=== PATIENT | male | born 1960 | race Hispanic/Latino ===

== ENCOUNTER 2017-06-13 19:25 | Emergency (ER) | payer OTHER ==
[2017-06-13 20:50] VITALS: BP 93/52
--- NOTE | 2017-06-13 22:15 | XRay Report ---
FINAL REPORT PROCEDURE: XR FOREARM LT TECHNIQUE: LEFT forearm radiographs, AP and lateral views. CPT 40073 HISTORY: left arm pain hx of ulnar/radius fracture COMPARISON: No prior studies are available for comparison. FINDINGS: Fracture (s) and/or Dislocation(s): An acute fracture line is not identified. Irregular deformities are noted involving distal radial and ulnar metaphysis.. Joint space(s): Normal . Soft tissues: Normal . Bone mineralization: Normal . Foreign bodies: None . IMPRESSION: No acute fracture. Old healed fracture deformities of distal radius and ulna
[2017-06-14] MEDS ORDERED: MOTRIN ONE (01:21)
[2017-06-14] MEDS ORDERED: MOTRIN PO ONE (01:21)
--- NOTE | 2017-06-14 02:15 | Emergency Department Report ---
Upper Extremity - [facility] Chief Complaint: Extremity Injury, Upper Stated Complaint: LEFT ARM PAIN Time Seen by Provider: 06/14/17 00:42 Upper Extremity: Left Wrist (pain from injury 4 years ago.) Occurred When: Today Mechanism: Unsure Severity: severe (03/1018 and throbbing pain) Symptoms: Yes Pain with Movement (left wrist), Yes Deformity (Left wrist), Yes Limited Range of Movement (left wrist), Yes Swelling (LT wrist), No Numbness, No Weakness, No Bruising/Ecchymosis, No Laceration or Abrasion Other History: Skin he reports that he broke his left wrist on both sides 4 years ago and was told that he needed orthopedic surgery with pins and plates. He states that he did not have money so he is been dealing with chronic pain in that area for the past 4 years. He said today he woke up and the pain was 10 out of 10 and he is unable to move the toes of the pain. He said pain is throbbing and achy in and he doesn't know if he injured his wrist in a sleep but he usually has chronic pain but he usually has bad. He said he took Motrin and this did not help his pain. Denies any restriction in movement to fingers. Denies any redness. Reports swelling. Patient said he thinks he has arthritis. He has any chest pain or shortness of breath. Denies any radiation of pain similarly. Pain is better with rest and worse with movement. Patient said he does not have any money and he cannot afford any medication or follow- up with the doctor. ED Review of Systems ROS: Stated complaint: LEFT ARM PAIN Other details as noted in HPI Comment: All other systems reviewed and negative Constitutional: no symptoms reported Eyes: denies: eye discharge Respiratory: no symptoms reported Cardiovascular: denies: chest pain, palpitations, dyspnea on exertion, orthopnea , edema, syncope, paroxysmal nocturnal dyspnea Gastrointestinal: denies: abdominal pain, nausea, vomiting, diarrhea Musculoskeletal: joint swelling, arthralgia. denies: back pain, myalgia Skin: denies: rash Neurological: denies: headache, weakness, numbness, paresthesias, confusion, abnormal gait, vertigo ED Past Medical Hx - Past Medical History Previous Medical History?: Yes Hx Liver Disease: Yes (Hep C) - Surgical History Past Surgical History?: No - Family History Family history: no significant - Social History Smoking Status: Current Every Day Smoker Substance Use Type: Alcohol, Non Opiate Pain - Medications Home Medications: Home Medications Medication Instructions Recorded Confirmed Last Taken Type traMADol [Ultram] 50 mg PO Q6HR PRN 5 Days #20 tablet 06/14/17 Unknown Rx Upper Extremity Exam - Exam General: Vital signs noted. No distress. Alert and acting appropriately. This is a 57-year-old male well-nourished well-developed that appears tearful and explained this is from having pain to his left wrist. He is nontoxic in appearance Head and Torso: No HEENT Abnormality (normal examination), No Neck Tenderness ( normal examination without any C-spine tenderness), No Chest/Lungs Abnormality ( CTAB.), No Abdominal Tenderness (NTTP in all Quadrants. NL bs) Shoulder Exam: Yes Normal Range of Motion in Shoulder, No Shoulder Tenderness, No Clavicle Tenderness, No Shoulder Deformity, No AC Joint Tenderness Arm Exam: No Arm/Humerus Tenderness, No Arm Deformity Elbow: Yes Normal Range of Motion in Elbow, No Elbow Tenderness, No Elbow Deformity Forearm: No Forearm Tenderness, No Forearm Deformity, No Pain with Pronation Wrist: Yes Wrist Tenderness (radial and ulnar area), Yes Normal ROM in Wrist ( he has full range of motion but he reports it is very painful with flexion and extending his wrist.), Yes Wrist Deformity (positive bony deformity.), No Snuffbox Tenderness, No Pain with Axial Thumb Compression Hand: Yes Normal ROM in Digit(s), Yes Digit(s) Deformity (Pt with PIP, DIP and MIP joint swelling to digits of both hands.), No Hand Tenderness, No Hand Deformity, No Digit Tenderness, No Tendon Dysfunction (he is able to open and close both hands but reports it is more difficult close and left hand.) CMS Exam: Yes Normal Distal Pulses (pulses to bilateral radial ulnar 2+ and bounding), Yes Normal Capillary Refill (patient with good color, movement, sensation and temperature to all extremities), Yes Normal Distal Sensation (no signs of tendon injury.), No Broken Skin (no erythema or signs of infection.) ED Course Vital Signs 06/13/17 20:46 Temperature 98.3 F Pulse Rate 100 H Respiratory 20 Rate Blood Pressure 93/52 O2 Sat by Pulse 96 Oximetry - Reevaluation(s) Reevaluation #1: 06/14/17 03:13 She received Decadron 10 mg IM and Percocet 5/325 2 tablets in emergency room for acute exacerbation of chronic pain. - Orthopedic Splinting/Casting Injury #1 Side: left Upper Extremity Injury Location: wrist Upper Extremity Immobilizer: wrist splint ED Medical Decision Making - Radiology Data Radiology results: report reviewed X-ray of left forearm reveal patient with no acute fracture but he does have hold healed fracture deformities of the distal radial radius and ulnar. Radiology made an addendum to say patient with narrowing joint spaces involving the radial carpal and distal radial ulnar joints. Osteophyte formation is noted involving the radial ulnar joints. Changes are consistent with osteoarthritis - Medical Decision Making ED Course: Patient with chronic left wrist pain and chronic pain from osteoarthritis with acute exacerbation. He had left ulnar and radial fracture 4 years ago and was told that he needed surgery with pins and plates but he said he could not afford it and has been liver chronic pain and has been taking Motrin for several years. Patient said that he woke up this morning in an pain was worse 10 out of 10 throbbing in and cannot remember injuring an area recently. He states that he doesn't know if he hit his hand while he was in his sleep with his pain is very bad today. Patient became tearful when talking about pain. He was given Decadron 10 mg IM and Percocet 5/325 mg 2 tablets by mouth. Patient placed in Velcro left wrist splint . See procedure note for details. I discussed patient that he will need to follow-up with orthopedic doctor for management of chronic arthritis to his hands and also to left wrist from abnormal healing and to wrists from previous fracture without any repair. I Discussed patient that he has arthritis in his wrist and also to both hands noted by interphalangeal joints swelling and metacarpal bone joint swelling to both hands up with x-ray finding for osteophyte, osteoarthritis and bony deformity to left wrist that is healed abnormally from previous fracture that he did not seek medical care as instructed previously. Patient able to move all extremities but he said it's very painful to move his left wrist. He was understood the discharge instruction and treatment planned and discharged home with his family member in stable condition with prescription for Ultram and to follow-up at [facility] and he was also given multiple other resources for community clinic follow-up. I discussed with him that he should call Dr. Montaño was orthopedic doctor in the morning to schedule an appointment if possible. Critical care attestation.: If time is entered above; I have spent that time in minutes in the direct care of this critically ill patient, excluding procedure time. ED Disposition Clinical Impression: Arthralgia of multiple sites, H/O fracture of wrist Osteoarthritis, multiple sites Qualifiers: Osteoarthritis type: unspecified Qualified Code(s): M15.9 - Polyosteoarthritis , unspecified Chronic pain Qualifiers: Chronic pain type: due to trauma Qualified Code(s): G89.21 - Chronic pain due to trauma Disposition: TO HOME OR SELFCARE Is pt being admited?: No Does the pt Need Aspirin: No Condition: Stable Instructions: Osteoarthritis (ED), Chronic Pain (ED), Arthralgia (ED) Additional Instructions: Please follow up with primary care as recommended Increase fluid intake Take medication as prescribed . please do not drive or operate heavy machinery while taking tramadol this medication causes drowsiness Referred to discharge instruction on splint care. see multiple community referrals Easy diet consists of banana, applesauce ,Rice and toast. follow-up with orthopedic doctor as instructed. Prescriptions: traMADol [Ultram] 50 mg PO Q6HR PRN 5 Days #20 tablet PRN Reason: Pain Referrals: GUERA MONTAÑO MD [Staff Physician] - 2-3 Days [facility] [Outside] - 2-3 Days Forms: Accompanied Note, Work/School Release Form(ED)
[2017-06-14] MEDS ORDERED: PERCOCET 5/325 PO ONE (03:02)
[2017-06-14] MEDS ORDERED: DECADRON IM STA (03:02)
== END 2017-06-14 04:01 | disposition home or self-care (01) ==
LOC: ED 19:25
DX: M15.9 Polyosteoarthritis, unspecified (principal); G89.21 Chronic pain due to trauma; F17.200 Nicotine dependence, unspecified, uncomplicated; X58.XXXA Exposure to other specified factors, initial encounter; Y93.89 Activity, other specified; Y99.8 Other external cause status; Y92.89 Other specified places as the place of occurrence of the external cause
CPT/HCPCS: 29125; 73090; 96372; 99284; J1100

== ENCOUNTER 2018-01-03 13:41 | Inpatient (IN) | payer SELFPAY ==
[2018-01-03 14:53] LABS: Hematocrit 32.3 % (35.5-45.6); Hemoglobin 10.8 gm/dl (11.8-15.2); Mean Corpuscular HGB Conc 33 % (32-34); Mean Corpuscular Hemoglobin 35 pg (28-32); Mean Corpuscular Volume 105 fl (84-94); Platelet Count 301 K/mm3 (140-440); Red Blood Count 3.07 M/mm3 (3.65-5.03)
[2018-01-03 14:57] LABS: Red Cell Distribution Width 25.2 % (13.2-15.2)
[2018-01-03 15:04] LABS: BUN/Creatinine Ratio 53; Blood Urea Nitrogen 21 mg/dL (9-20); Calcium 8.1 mg/dL (8.4-10.2); Hemolysis Index 16
[2018-01-03 15:24] LABS: Band Neutrophils # (Manual) 0.1 K/mm3; Eosinophils % (Manual) 0 % (0.0-4.3); Total Cells Counted 100
[2018-01-03 15:25] LABS: Anisocytosis 2+; Large Platelets Few; Platelet Estimate Consistent w Auto; Poikilocytosis 1+; Target Cells Few; Tear Drop Cells Few
[2018-01-03 15:40] LABS: Bilirubin,Urine NEG (Negative); Blood,Urine NEG (Negative); Color,Urine Yellow (Yellow); Mucus,Urine 1+ /HPF; Protein,Urine <15 mg/dL mg/dL (Negative); Urobilinogen,Urine < 2.0 mg/dL (<2.0)
[2018-01-03 15:42] LABS: Benzodiazepines Screen,Urine PRESUMPTIVE NEGATIVE; Cannabinoid Screen,Urine PRESUMPTIVE NEGATIVE; Cocaine Screen,Urine PRESUMPTIVE NEGATIVE; Methadone Screen,Urine PRESUMPTIVE NEGATIVE; Opiate Screen,Urine PRESUMPTIVE NEGATIVE
[2018-01-03 15:54] LABS: Amphetamine Screen,Urine PRESUMPTIVE POSITIVE
--- NOTE | 2018-01-03 16:26 | XRay Report ---
FINAL REPORT EXAM: XR RIBS UNI W PA CHEST 3+V LT HISTORY: pain to left torso post ground level fall TECHNIQUE: Left ribs three views PRIORS: None. FINDINGS: No rib fracture identified. No bony lesions seen. No evidence of pneumothorax or pleural effusion within the chest. Otherwise no acute findings. IMPRESSION: Negative rib series
[2018-01-03] MEDS ORDERED: NACL 0.9% 1000 ML 1,000 ML ONE (16:37)
[2018-01-03] MEDS ORDERED: NACL 0.9% 1000 ML 1,000 ML IV ONE (16:46)
[2018-01-03] MEDS ORDERED: TYLENOL PO ONE (17:06)
--- NOTE | 2018-01-03 18:39 | Cat Scan Report ---
FINAL REPORT EXAM: CT ANGIO CHEST HISTORY: chest pain TECHNIQUE: CT chest CT angiogram with reconstructions PRIORS: None. FINDINGS: There is no evidence of filling defect within the central pulmonary vasculature to suggest the presence of acute pulmonary embolus. No evidence of mediastinal pathologic lymph node enlargement Heart and great vessels are unremarkable. The aorta is normal in caliber. There are centrilobular I lateral pulmonary emphysematous changes most prominent in the upper lobes. In the lower lobes there is fibrotic appearing change posteriorly along with bronchiectasis which may be acute or chronic finding. Visualized portion of the upper abdomen demonstrates no acute change. Noted is an upper pole right renal cyst 2.3 centimeters IMPRESSION: Pulmonary emphysema Bronchiectatic changes and atelectasis/fibrotic changes in the lower lobes Right renal cyst noted No CT evidence for acute pulmonary embolus
[2018-01-03] MEDS ORDERED: DUONEB *Not for PRN Use IH ONE (18:43)
--- NOTE | 2018-01-03 20:45 | Emergency Department Report ---
ED Chest Pain HPI - General Chief Complaint: Alcohol Stated Complaint: FALL/GROUND LEVEL Time Seen by Provider: 01/03/18 14:41 Source: patient, EMS Mode of arrival: Stretcher Limitations: No Limitations - History of Present Illness Initial Comments: Patient presents with left sided chest pain. Reports a ground level fall where he hit his left chest. Complaint: chest pain -: Gradual, days(s) Onset: other (after a ground level fall) Pain Location: left chest Pain Radiation: none Severity: mild Severity scale (0 -10): 3 Quality: aching Consistency: intermittent Improves With: rest Worsens With: palpation, movement (torso) re: dyspnea. denies: nausea, vomting, diaphoresis, sense of impending doom Other Symptoms: cough (makes chest pain worse). denies: fever, syncope, rash, acid taste in mouth, leg swelling, palpitations, burping - Related Data Home Medications Medication Instructions Recorded Confirmed Last Taken Ibuprofen [Ibuprofen Ib] 800 mg PO TID 01/03/18 01/03/18 01/02/18 Allergies Allergy/AdvReac Type Severity Reaction Status Date / Time No Known Allergies Allergy Unverified 06/13/17 20:44 Heart Score - HEART Score History: Slightly suspicious EKG: Non-specific Age: 45-65 Risk factors: 1-2 risk factors Troponin: < normal limit HEART Score: 3 ED Review of Systems ROS: Stated complaint: FALL/GROUND LEVEL Other details as noted in HPI Other: GENERAL: No weight change, fatigue, weakness, fever, chills, or night sweats SKIN: No changes in skin or hair, no itching, no rashes, no jaundice HEAD: No trauma, headache, or visual changes EYES: No blurriness, tearing, itching, acute visual loss, conjunctival discoloration, or scleral icterus EARS: No hearing loss, tinnitus, vertigo, or earache NOSE: No rhinorrhea, stuffiness, sneezing, itching, or epistaxis MOUTH: No bleeding gums, hoarseness, sore throat, or swelling CARDIAC: chest pain RESPIRATORY: dyspnea GI: No change in appetite, nausea, vomiting, dysphagia, change in bowel frequency, diarrhea, constipation, bleeding, hematemesis, melena, hematochezia, or abdominal pain URINARY: No frequency, urgency, polyuria, dysuria, hematuria, or incontinence MUSCULOSKELETAL: No muscle weakness, joint stiffness, decrease in range of motion, redness, swelling NEUROLOGIC: No loss of sensation, numbness, tingling, tremors, weakness, paralysis, seizures HEMATOLOGIC: No anemia, easy bruising, bleeding, petechiae, or purpura ENDOCRINE: No hot or cold intolerance, sweating, polyuria, polydipsia or, polyphagia no thyroid problems ED Past Medical Hx - Past Medical History Previous Medical History?: Yes Hx Liver Disease: Yes (Hep C) Hx Arthritis: Yes Additional medical history: degenerative disc disease - Surgical History Past Surgical History?: Yes Additional Surgical History: right hand "nerve" surgery - Social History Smoking Status: Current Every Day Smoker Substance Use Type: Alcohol - Medications Home Medications: Home Medications Medication Instructions Recorded Confirmed Last Taken Type Ibuprofen [Ibuprofen Ib] 800 mg PO TID 01/03/18 01/03/18 01/02/18 History ED Physical Exam - General Limitations: No Limitations - Other Other exam information: GENERAL: Patient in no acute distress HEAD: Normocephalic, atraumatic EYES: PERRLA, EOM intact, no scleral icterus, visual paul and acuity wnl NOSE: No tenderness, discharge, sinus tenderness MOUTH: No erythema, bleeding, exudate HEART: Regular rate and rhythm, no murmur, S1-S2 are auscultated, pulses are symmetric LUNGS: bilateral breath sounds. No wheezing, rales, rhonchi ABDOMEN: Normal bowel sounds, no tenderness, no rebound, no guarding, no masses , no CVA tenderness MUSCULOSKELETAL: Normal joint range of motion, no redness, no swelling, no tenderness NEUROLOGIC: GCS 15, Alert and Oriented x3, Cranial nerves intact, normal sensation, normal strength, normal gait, no cerebellar deficit PSYCHIATRIC: No homicidal or suicidal ideation, no anxiety, no depression, no hallucinations SKIN: Skin is warm and dry, no wounds, no rashes ED Course Vital Signs 01/03/18 01/03/18 01/03/18 13:46 13:49 14:00 Temperature 98.3 F Pulse Rate 75 74 Respiratory 15 15 Rate Blood Pressure 124/69 140/71 O2 Sat by Pulse 91 90 96 Oximetry 01/03/18 01/03/18 01/03/18 14:11 14:31 15:00 Temperature Pulse Rate 74 72 Respiratory 20 14 16 Rate Blood Pressure 140/71 143/79 O2 Sat by Pulse 98 93 93 Oximetry 01/03/18 01/03/18 01/03/18 15:31 16:01 16:31 Temperature Pulse Rate 71 65 65 Respiratory 13 12 12 Rate Blood Pressure 143/79 132/68 132/68 O2 Sat by Pulse 91 93 95 Oximetry 01/03/18 01/03/18 01/03/18 17:01 17:31 18:13 Temperature Pulse Rate 54 L 71 80 Respiratory 16 20 15 Rate Blood Pressure 126/78 126/78 O2 Sat by Pulse 95 93 91 Oximetry 01/03/18 18:31 Temperature Pulse Rate 80 Respiratory 18 Rate Blood Pressure O2 Sat by Pulse 87 Oximetry ED Medical Decision Making - Lab Data Result diagrams: 01/03/18 14:39 01/03/18 14:39 Laboratory Results - last 24 hr 01/03/18 01/03/18 01/03/18 14:39 14:39 14:39 WBC RBC Hgb Hct MCV MCH MCHC RDW Plt Count Add Manual Diff Total Counted Seg Neuts % (Manual) Band Neutrophils % Lymphocytes % (Manual) Reactive Lymphs % (Man) Monocytes % (Manual) Eosinophils % (Manual) Basophils % (Manual) Metamyelocytes % Myelocytes % Promyelocytes % Blast Cells % Nucleated RBC % Seg Neutrophils # Man Band Neutrophils # Lymphocytes # (Manual) Abs React Lymphs (Man) Monocytes # (Manual) Eosinophils # (Manual) Basophils # (Manual) Metamyelocytes # Myelocytes # Promyelocytes # Blast Cells # WBC Morphology Hypersegmented Neuts Hyposegmented Neuts Hypogranular Neuts Smudge Cells Toxic Granulation Toxic Vacuolation Dohle Bodies Pelger-Huet Anomaly Sury Rods Platelet Estimate Clumped Platelets Plt Clumps, EDTA Large Platelets Giant Platelets Platelet Satelliting Plt Morphology Comment RBC Morphology Dimorphic RBCs Polychromasia Hypochromasia Poikilocytosis Anisocytosis Microcytosis Macrocytosis Spherocytes Pappenheimer Bodies Sickle Cells Target Cells Tear Drop Cells Ovalocytes Helmet Cells [place] Bodies [place] Rings [place] Cells Bite Cells Crenated Cell Elliptocytes Acanthocytes (Spur) Rouleaux Hemoglobin C Crystals Schistocytes Malaria parasites Humberto Bodies Hem Pathologist Commnt POC ABG pH POC ABG pCO2 POC ABG pO2 POC ABG HCO3 POC ABG Total CO2 POC ABG O2 Sat POC ABG Base Excess FiO2 Sodium 145 Potassium 3.1 L Chloride 107.0 Carbon Dioxide 20 L Anion Gap 21 BUN 21 H Creatinine 0.4 L Estimated GFR > 60 BUN/Creatinine Ratio 53 Glucose 86 Calcium 8.1 L Total Creatine Kinase Troponin T Urine Color Urine Turbidity Urine pH Ur Specific [place] Urine Protein Urine Glucose (UA) Urine Ketones Urine Blood Urine Nitrite Urine Bilirubin Urine Urobilinogen Ur Leukocyte Esterase Urine WBC (Auto) Urine RBC (Auto) U Epithel Cells (Auto) Urine Mucus Salicylates 0.8 L Urine Opiates Screen Urine Methadone Screen Acetaminophen < 5.0 L Ur Barbiturates Screen Ur Phencyclidine Scrn Ur Amphetamines Screen U Benzodiazepines Scrn Urine Cocaine Screen U Marijuana (THC) Screen Drugs of Abuse Note Plasma/Serum Alcohol 01/03/18 01/03/18 01/03/18 14:39 14:39 15:10 WBC 9.1 RBC 3.07 L Hgb 10.8 L Hct 32.3 L MCV 105 H MCH 35 H MCHC 33 RDW 25.2 H Plt Count 301 Add Manual Diff Complete Total Counted 100 Seg Neuts % (Manual) 83.0 H Band Neutrophils % 1.0 Lymphocytes % (Manual) 9.0 L Reactive Lymphs % (Man) 0 Monocytes % (Manual) 4.0 Eosinophils % (Manual) 0 Basophils % (Manual) 1.0 Metamyelocytes % 2.0 Myelocytes % 0 Promyelocytes % 0 Blast Cells % 0 Nucleated RBC % Not Reportable Seg Neutrophils # Man 7.6 Band Neutrophils # 0.1 Lymphocytes # (Manual) 0.8 L Abs React Lymphs (Man) 0.0 Monocytes # (Manual) 0.4 Eosinophils # (Manual) 0.0 Basophils # (Manual) 0.1 Metamyelocytes # 0.2 Myelocytes # 0.0 Promyelocytes # 0.0 Blast Cells # 0.0 WBC Morphology Not Reportable Hypersegmented Neuts Not Reportable Hyposegmented Neuts Not Reportable Hypogranular Neuts Not Reportable Smudge Cells Not Reportable Toxic Granulation Not Reportable Toxic Vacuolation Not Reportable Dohle Bodies Not Reportable Pelger-Huet Anomaly Not Reportable Sury Rods Not Reportable Platelet Estimate Consistent w auto Clumped Platelets Not Reportable Plt Clumps, EDTA Not Reportable Large Platelets Few Giant Platelets Not Reportable Platelet Satelliting Not Reportable Plt Morphology Comment Not Reportable RBC Morphology Not Reportable Dimorphic RBCs Not Reportable Polychromasia Not Reportable Hypochromasia Not Reportable Poikilocytosis 1+ Anisocytosis 2+ Microcytosis Not Reportable Macrocytosis Not Reportable Spherocytes Not Reportable Pappenheimer Bodies Not Reportable Sickle Cells Not Reportable Target Cells Few Tear Drop Cells Few Ovalocytes Not Reportable Helmet Cells Not Reportable [place] Bodies Not Reportable [place] Rings Not Reportable [place]en Cells Not Reportable Bite Cells Not Reportable Crenated Cell Not Reportable Elliptocytes Not Reportable Acanthocytes (Spur) Not Reportable Rouleaux Not Reportable Hemoglobin C Crystals Not Reportable Schistocytes Not Reportable Malaria parasites Not Reportable Humberto Bodies Not Reportable Hem Pathologist Commnt No POC ABG pH POC ABG pCO2 POC ABG pO2 POC ABG HCO3 POC ABG Total CO2 POC ABG O2 Sat POC ABG Base Excess FiO2 Sodium Potassium Chloride Carbon Dioxide Anion Gap BUN Creatinine Estimated GFR BUN/Creatinine Ratio Glucose Calcium Total Creatine Kinase Troponin T Urine Color Yellow Urine Turbidity Clear Urine pH 5.0 Ur Specific [place] 1.026 Urine Protein <15 mg/dl Urine Glucose (UA) Neg Urine Ketones Tr Urine Blood Neg Urine Nitrite Neg Urine Bilirubin Neg Urine Urobilinogen < 2.0 Ur Leukocyte Esterase Neg Urine WBC (Auto) 1.0 Urine RBC (Auto) 1.0 U Epithel Cells (Auto) < 1.0 Urine Mucus 1+ Salicylates Urine Opiates Screen Urine Methadone Screen Acetaminophen Ur Barbiturates Screen Ur Phencyclidine Scrn Ur Amphetamines Screen U Benzodiazepines Scrn Urine Cocaine Screen U Marijuana (THC) Screen Drugs of Abuse Note Plasma/Serum Alcohol 0.23 H 01/03/18 01/03/18 01/03/18 15:10 15:53 18:25 WBC RBC Hgb Hct MCV MCH MCHC RDW Plt Count Add Manual Diff Total Counted Seg Neuts % (Manual) Band Neutrophils % Lymphocytes % (Manual) Reactive Lymphs % (Man) Monocytes % (Manual) Eosinophils % (Manual) Basophils % (Manual) Metamyelocytes % Myelocytes % Promyelocytes % Blast Cells % Nucleated RBC % Seg Neutrophils # Man Band Neutrophils # Lymphocytes # (Manual) Abs React Lymphs (Man) Monocytes # (Manual) Eosinophils # (Manual) Basophils # (Manual) Metamyelocytes # Myelocytes # Promyelocytes # Blast Cells # WBC Morphology Hypersegmented Neuts Hyposegmented Neuts Hypogranular Neuts Smudge Cells Toxic Granulation Toxic Vacuolation Dohle Bodies Pelger-Huet Anomaly Sury Rods Platelet Estimate Clumped Platelets Plt Clumps, EDTA Large Platelets Giant Platelets Platelet Satelliting Plt Morphology Comment RBC Morphology Dimorphic RBCs Polychromasia Hypochromasia Poikilocytosis Anisocytosis Microcytosis Macrocytosis Spherocytes Pappenheimer Bodies Sickle Cells Target Cells Tear Drop Cells Ovalocytes Helmet Cells [place] Bodies [place] Rings [place]en Cells Bite Cells Crenated Cell Elliptocytes Acanthocytes (Spur) Rouleaux Hemoglobin C Crystals Schistocytes Malaria parasites Humberto Bodies Hem Pathologist Commnt POC ABG pH POC ABG pCO2 POC ABG pO2 POC ABG HCO3 POC ABG Total CO2 POC ABG O2 Sat POC ABG Base Excess FiO2 Sodium Potassium Chloride Carbon Dioxide Anion Gap BUN Creatinine Estimated GFR BUN/Creatinine Ratio Glucose Calcium Total Creatine Kinase 102 Troponin T < 0.010 < 0.010 Urine Color Urine Turbidity Urine pH Ur Specific [place] Urine Protein Urine Glucose (UA) Urine Ketones Urine Blood Urine Nitrite Urine Bilirubin Urine Urobilinogen Ur Leukocyte Esterase Urine WBC (Auto) Urine RBC (Auto) U Epithel Cells (Auto) Urine Mucus Salicylates Urine Opiates Screen Presumptive negative Urine Methadone Screen Presumptive negative Acetaminophen Ur Barbiturates Screen Presumptive negative Ur Phencyclidine Scrn Presumptive negative Ur Amphetamines Screen Presumptive positive U Benzodiazepines Scrn Presumptive negative Urine Cocaine Screen Presumptive negative U Marijuana (THC) Screen Presumptive negative Drugs of Abuse Note Disclamer Plasma/Serum Alcohol 01/03/18 19:01 WBC RBC Hgb Hct MCV MCH MCHC RDW Plt Count Add Manual Diff Total Counted Seg Neuts % (Manual) Band Neutrophils % Lymphocytes % (Manual) Reactive Lymphs % (Man) Monocytes % (Manual) Eosinophils % (Manual) Basophils % (Manual) Metamyelocytes % Myelocytes % Promyelocytes % Blast Cells % Nucleated RBC % Seg Neutrophils # Man Band Neutrophils # Lymphocytes # (Manual) Abs React Lymphs (Man) Monocytes # (Manual) Eosinophils # (Manual) Basophils # (Manual) Metamyelocytes # Myelocytes # Promyelocytes # Blast Cells # WBC Morphology Hypersegmented Neuts Hyposegmented Neuts Hypogranular Neuts Smudge Cells Toxic Granulation Toxic Vacuolation Dohle Bodies Pelger-Huet Anomaly Sury Rods Platelet Estimate Clumped Platelets Plt Clumps, EDTA Large Platelets Giant Platelets Platelet Satelliting Plt Morphology Comment RBC Morphology Dimorphic RBCs Polychromasia Hypochromasia Poikilocytosis Anisocytosis Microcytosis Macrocytosis Spherocytes Pappenheimer Bodies Sickle Cells Target Cells Tear Drop Cells Ovalocytes Helmet Cells [place] Bodies [place] Rings [place]en Cells Bite Cells Crenated Cell Elliptocytes Acanthocytes (Spur) Rouleaux Hemoglobin C Crystals Schistocytes Malaria parasites Humberto Bodies Hem Pathologist Commnt POC ABG pH 7.370 POC ABG pCO2 37.0 POC ABG pO2 71 L POC ABG HCO3 21.4 POC ABG Total CO2 23 POC ABG O2 Sat 94 POC ABG Base Excess -4 FiO2 28 Sodium Potassium Chloride Carbon Dioxide Anion Gap BUN Creatinine Estimated GFR BUN/Creatinine Ratio Glucose Calcium Total Creatine Kinase Troponin T Urine Color Urine Turbidity Urine pH Ur Specific [place] Urine Protein Urine Glucose (UA) Urine Ketones Urine Blood Urine Nitrite Urine Bilirubin Urine Urobilinogen Ur Leukocyte Esterase Urine WBC (Auto) Urine RBC (Auto) U Epithel Cells (Auto) Urine Mucus Salicylates Urine Opiates Screen Urine Methadone Screen Acetaminophen Ur Barbiturates Screen Ur Phencyclidine Scrn Ur Amphetamines Screen U Benzodiazepines Scrn Urine Cocaine Screen U Marijuana (THC) Screen Drugs of Abuse Note Plasma/Serum Alcohol - EKG Data When compared to previous EKG there are: no significant change - Radiology Data Radiology results: report reviewed - Medical Decision Making Patient on room air has good waveform on pulse ox of 85%. Plan admit for further evaluation hypoxia. Patient comfortable. Updated with results. Plan admit for further evaluation. Hospitalists accepts admission. Critical care attestation.: If time is entered above; I have spent that time in minutes in the direct care of this critically ill patient, excluding procedure time. ED Disposition Clinical Impression: Hypoxia Chest pain Qualifiers: Chest pain type: unspecified Qualified Code(s): R07.9 - Chest pain, unspecified Disposition: OP ADMIT IP TO THIS HOSP Is pt being admited?: Yes Condition: Stable Instructions: Chest Pain (ED) Referrals: PRIMARY CARE, [Primary Care Provider] - 3-5 Days Time of Disposition: 21:24
[2018-01-03] MEDS ORDERED: PERCOCET 5/325 PO ONE (22:45)
[2018-01-03] MEDS ORDERED: ATIVAN IV PRN ×2 (23:06)
--- NOTE | 2018-01-03 23:07 | History and Physical Report ---
History of Present Illness Date of examination: 01/03/18 History of present illness: 57-year-old alcoholic man, hepatitis C, DJD comes emergency room because he slipped and fell today and landed on the left side. He is having a lot of pain on the left side of the chest, difficulty doing his ADLs Review of systems Constitutional: no weight loss, chills, fever Ears, eyes, nose, mouth and throat: no nasal congestion, no nasal discharge, no sinus pressure, no vision change, no red eye. Neck: No neck pain or rigidity. Cardiovascular: no chest pain, palpitations Respiratory: no cough, shortness of breath Gastrointestinal: no abdominal pain hematochezia Genitourinary : no frequency , no hematuria Musculoskeletal: no joint swelling or muscle ache Integumentary: no rash, no pruritis Neurological: no parathesias, no numbness, no focal weakness Endocrine: no cold or heat intolerance, no polyuria or polydipsia Hematologic/Lymphatic: no easy bruising, no easy bleeding, no gland swelling Allergic/Immunologic: no urticaria, no angioedema. PAST MEDICAL HISTORY:alcoholism, hepatitis C, DJD PAST SURGICAL HISTORY: Right hand surgery SOCIAL HISTORY: Drinks half gallon in 2 days, no drugs, smoke 1 pack a day FAMILY HISTORY: Hypertension Medications and Allergies Allergies Allergy/AdvReac Type Severity Reaction Status Date / Time No Known Allergies Allergy Unverified 06/13/17 20:44 Home Medications Medication Instructions Recorded Confirmed Last Taken Type Ibuprofen [Ibuprofen Ib] 800 mg PO TID 01/03/18 01/03/18 01/02/18 History Active Meds: Active Medications Lorazepam (Ativan) 2 mg IV Q1HR PRN PRN Reason: CIWA-Ar 8-15 Lorazepam (Ativan) 4 mg IV Q1HR PRN PRN Reason: CIWA-Ar 16-25 Exam - Physical Exam Narrative exam: Gen. appearance: Patient lying in bed, no apparent distress HEENT: Normocephalic, atraumatic, pupils equally round and reactive to light, extraocular movement intact, and no sclericterus,. No JVD or thyromegaly or nodule,neck supple, no carotid bruit ,mucous membranes moist, no exudate or erythema Heart: S1, S2, regular rate and rhythm Lungs: Clear bilaterally, breathing comfortable Abdomen: Positive bowel sounds, non-tender, nondistended, no organomegaly Extremity:no edema cyanosis, clubbing Skin: no rash, dry, warm Neuro: Oriented 3, cranial nerves II-12 intact, speech is fluent, motor and sensory intact - Constitutional Vitals: Temp Pulse Resp BP Pulse Ox 98.3 F 80 18 126/78 87 01/03/18 13:49 01/03/18 18:31 01/03/18 18:31 01/03/18 17:31 01/03/18 18:31 Results - Labs CBC & Chem 7: 01/04/18 03:46 01/04/18 03:46 Labs: Abnormal lab results 01/03/18 01/03/18 01/03/18 Range/Units 14:39 14:39 14:39 RBC (3.65-5.03) M/mm3 Hgb (11.8-15.2) gm/dl Hct (35.5-45.6) % MCV (84-94) fl MCH (28-32) pg RDW (13.2-15.2) % Seg Neuts % (Manual) (40.0-70.0) % Lymphocytes % (Manual) (13.4-35.0) % Lymphocytes # (Manual) (1.2-5.4) K/mm3 POC ABG pO2 (80-105) Potassium 3.1 L (3.6-5.0) mmol/L Carbon Dioxide 20 L (22-30) mmol/L BUN 21 H (9-20) mg/dL Creatinine 0.4 L (0.8-1.5) mg/dL Calcium 8.1 L (8.4-10.2) mg/dL Salicylates 0.8 L (2.8-20.0) mg/dL Acetaminophen < 5.0 L (10.0-30.0) ug/mL Plasma/Serum Alcohol (0-0.07) % 01/03/18 01/03/18 01/03/18 Range/Units 14:39 14:39 19:01 RBC 3.07 L (3.65-5.03) M/mm3 Hgb 10.8 L (11.8-15.2) gm/dl Hct 32.3 L (35.5-45.6) % MCV 105 H (84-94) fl MCH 35 H (28-32) pg RDW 25.2 H (13.2-15.2) % Seg Neuts % (Manual) 83.0 H (40.0-70.0) % Lymphocytes % (Manual) 9.0 L (13.4-35.0) % Lymphocytes # (Manual) 0.8 L (1.2-5.4) K/mm3 POC ABG pO2 71 L (80-105) Potassium (3.6-5.0) mmol/L Carbon Dioxide (22-30) mmol/L BUN (9-20) mg/dL Creatinine (0.8-1.5) mg/dL Calcium (8.4-10.2) mg/dL Salicylates (2.8-20.0) mg/dL Acetaminophen (10.0-30.0) ug/mL Plasma/Serum Alcohol 0.23 H (0-0.07) % - Imaging and Cardiology Chest x-ray: report reviewed CT scan - chest: report reviewed Assessment and Plan Assessment Intractable pain Status post fall Substancel abuse Plan Admit to medicine Start IV morphine, CIWA protocol Hypoxia most likel secondary to underlying COPD Start nebulizer treatments DVT prophylaxis
[2018-01-03] MEDS ORDERED: MORPHINE IV PRN (23:08)
[2018-01-04] MEDS ORDERED: PROVENTIL IH PRN (00:54)
[2018-01-04] MEDS ORDERED: K-DUR PO ONE ×2 (00:54→03:45)
[2018-01-04] MEDS ORDERED: TYLENOL PO PRN (00:54)
[2018-01-04] MEDS ORDERED: SODIUM CHLORIDE FLUSH SYRINGE 10 ML IV PRN (00:54)
[2018-01-04] MEDS ORDERED: ZOFRAN IV PRN (00:54)
[2018-01-04 04:16] LABS: Hematocrit 32.3 % (35.5-45.6); Hemoglobin 10.9 gm/dl (11.8-15.2); Mean Corpuscular HGB Conc 34 % (32-34); Mean Corpuscular Hemoglobin 36 pg (28-32); Mean Corpuscular Volume 105 fl (84-94); Platelet Count 315 K/mm3 (140-440); Red Blood Count 3.07 M/mm3 (3.65-5.03)
[2018-01-04 04:23] LABS: Red Cell Distribution Width 24.9 % (13.2-15.2)
[2018-01-04 04:29] LABS: BUN/Creatinine Ratio 60; Blood Urea Nitrogen 18 mg/dL (9-20); Calcium 7.6 mg/dL (8.4-10.2); Hemolysis Index 2
[2018-01-04 06:16] LABS: Band Neutrophils # (Manual) 0.3 K/mm3; Basophils % (Manual) 0 % (0.0-1.8); Eosinophils % (Manual) 0 % (0.0-4.3); Monocytes % (Manual) 0 % (0.0-7.3); Platelet Estimate Consistent w Auto; Total Cells Counted 100
[2018-01-04] MEDS: MORPHINE IV PRN ×2 (09:36→15:46)
--- NOTE | 2018-01-04 09:37 | Discharge Summary ---
Providers - Providers Date of Admission: 01/03/18 23:06 Date of discharge: 01/04/18 Attending physician: MITZI LYLES 01/04/18 09:31 Physical Therapy Evaluation and Treat [CONS] Routine Comment: Reason For Exam: deconditioning Primary care physician: NURSERY MANAGER Hospitalization Reason for admission: fall Condition: Stable Hospital course: 57-year-old alcoholic man, hepatitis C, DJD comes emergency room because he slipped and fell and landed on the left side. He was having a lot of pain on the left side of the chest, difficulty doing his ADLs. The patient was admitted for pain control which resolved. CTA of the chest, chest x-ray and rib series were all essentially negative. He was also noted to have substance abuse with amphetamines on urine drug screen. Patient was placed on CIWA protocol. Patient otherwise stabilized. Dedicated discharge time 32 minutes. Disposition: - TO HOME OR SELFCARE Time spent for discharge: 32 - Discharge Diagnoses (1) Substance abuse Status: Acute (2) Fall Status: Acute (3) Chest pain Status: Acute Qualifiers: Chest pain type: unspecified Qualified Code(s): R07.9 - Chest pain, unspecified Core Measure Documentation - Palliative Care Palliative Care/ Comfort Measures: Not Applicable - Core Measures Any of the following diagnoses?: none Exam - Constitutional Vitals: Temp Pulse Resp BP Pulse Ox 98.3 F 74 12 151/82 94 01/03/18 13:49 01/04/18 01:31 01/04/18 01:31 01/04/18 08:00 01/04/18 08:00 General appearance: Present: no acute distress, well-nourished - EENT Eyes: Present: PERRL ENT: hearing intact, clear oral mucosa - Neck Neck: Present: supple, normal ROM - Respiratory Respiratory effort: normal Respiratory: bilateral: CTA - Cardiovascular Heart Sounds: Present: S1 & S2. Absent: rub, click - Extremities Extremities: pulses symmetrical, No edema Peripheral Pulses: within normal limits - Abdominal General gastrointestinal: Present: soft, non-tender, non-distended, normal bowel sounds Male genitourinary: Present: normal - Integumentary Integumentary: Present: clear, warm, dry - Musculoskeletal Musculoskeletal: gait normal, strength equal bilaterally - Psychiatric Psychiatric: appropriate mood/affect, intact judgment & insight - Neurologic Neurologic: CNII-XII intact, moves all extremities Plan Activity: advance as tolerated Weight Bearing Status: Weight Bear as Tolerated Diet: regular Follow up with: PRIMARY CARE, [Primary Care Provider] - 3-5 Days Prescriptions: oxyCODONE /ACETAMINOPHEN [Percocet 5/325] 1 tab PO Q6HR PRN #15 tablet PRN Reason: Pain
[2018-01-04] MEDS ORDERED: LOVENOX SUB-Q SCH ×2 (10:00)
[2018-01-04] MEDS ORDERED: SODIUM CHLORIDE FLUSH SYRINGE 10 ML IV SCH (10:00)
[2018-01-04 18:19] VITALS: BP 146/83
== END 2018-01-04 15:00 | disposition home or self-care (01) | DRG 313 ==
LOC: ED 13:41 → 4A 23:06
PROVIDERS: ADMIT Internal Medicine; ATTEND Hospitalist
DX: R07.9 Chest pain, unspecified (principal); F10.10 Alcohol abuse, uncomplicated; B19.20 Unspecified viral hepatitis C without hepatic coma; M19.90 Unspecified osteoarthritis, unspecified site; F19.10 Other psychoactive substance abuse, uncomplicated; W01.0XXA Fall on same level from slipping, tripping and stumbling without subsequent striking against object, initial encounter; F17.200 Nicotine dependence, unspecified, uncomplicated; R09.02 Hypoxemia; Y93.89 Activity, other specified; Y92.89 Other specified places as the place of occurrence of the external cause; Y99.8 Other external cause status; Z79.899 Other long term (current) drug therapy
CPT/HCPCS: 36415; 71275; 80048; 80307; 80320; 81001; 82550; 82803; 84484; 85007; 85025; G0480; J1650; J2060; J2270; J2405; J2930; J7030; Q9967

== ENCOUNTER 2018-01-23 22:51 | Inpatient (IN) | payer SELFPAY ==
--- NOTE | 2018-01-23 23:33 | Emergency Department Report ---
HPI - General Chief Complaint: Chest Pain Time Seen by Provider: 01/23/18 22:59 - HPI HPI: 57-year-old male presents to the emergency department via EMS with complaint of having a fall in his front yard and having trouble getting back up. He has some chronic left-sided chest and rib pain. The patient is a self- proclaimed alcoholic and admits to drinking alcohol today but says that was not the reason he fell. He was seen here a few weeks ago for similar symptoms. He otherwise denies any significant past medical history other than chronic back pains. He does not have a primary care physician. ED Past Medical Hx - Past Medical History Previous Medical History?: Yes Hx Liver Disease: Yes (Hep C) Hx Arthritis: Yes Additional medical history: degenerative disc disease - Surgical History Past Surgical History?: Yes Additional Surgical History: right hand "nerve" surgery - Social History Smoking Status: Current Every Day Smoker Substance Use Type: Alcohol - Medications Home Medications: Home Medications Medication Instructions Recorded Confirmed Last Taken Type Ibuprofen [Ibuprofen Ib] 800 mg PO TID 01/03/18 01/03/18 01/02/18 History oxyCODONE /ACETAMINOPHEN [Percocet 1 tab PO Q6HR PRN #15 tablet 01/04/18 Unknown Rx 5/325] ED Review of Systems ROS: Stated complaint: ETOH Other details as noted in HPI Comment: All other systems reviewed and negative Constitutional: weakness. denies: chills, fever Eyes: denies: eye pain, eye discharge, vision change ENT: denies: ear pain, throat pain Respiratory: denies: cough, shortness of breath Cardiovascular: chest pain (chronic left-sided chest/rib cage). denies: edema Gastrointestinal: denies: abdominal pain, nausea, diarrhea Genitourinary: denies: urgency, dysuria Musculoskeletal: denies: arthralgia, myalgia Skin: denies: rash, lesions Neurological: denies: headache, numbness Physical Exam - Physical Exam Vital Signs: Vital Signs 01/23/18 23:10 Temperature 98 F Pulse Rate 68 Respiratory 16 Rate Blood Pressure 117/66 Blood Pressure 117/66 [Left] O2 Sat by Pulse 98 Oximetry Physical Exam: GENERAL: The patient is well-developed well-nourished. Poor personal hygiene. HENT: Normocephalic. Atraumatic. Patient has moist mucous membranes. EYES: Extraocular motions are intact. Pupils equal reactive to light bilaterally. NECK: Supple. Trachea is midline. CHEST/LUNGS: Clear to auscultation. There is no respiratory distress noted. HEART/CARDIOVASCULAR: Regular. There is no tachycardia. There is no murmur. ABDOMEN: Abdomen is soft, nontender. Patient has normal bowel sounds. There is no abdominal distention. SKIN: Skin is warm and dry. NEURO: The patient is awake, alert, and oriented. The patient is cooperative. The patient has no focal neurologic deficits. The patient has normal speech and gait. MUSCULOSKELETAL: Patient has some tenderness to palpation to the left lateral- posterior rib cage where he has some known rib fractures. No extremity tenderness to palpation or deformity. There is no limitation range of motion. ED Course Vital Signs 01/23/18 23:10 Temperature 98 F Pulse Rate 68 Respiratory 16 Rate Blood Pressure 117/66 Blood Pressure 117/66 [Left] O2 Sat by Pulse 98 Oximetry ED Medical Decision Making - Lab Data Result diagrams: 01/23/18 23:26 01/23/18 23:26 - EKG Data -: EKG Interpreted by Al EKG shows normal: sinus rhythm, axis, intervals, QRS complexes, ST-T waves Rate: normal - EKG Data When compared to previous EKG there are: previous EKG unavailable Interpretation: normal EKG - Radiology Data Radiology results: report reviewed PROCEDURE: XR CHEST 1V AP TECHNIQUE: Chest radiograph anteroposterior view. CPT 04538 HISTORY: Chest Pain COMPARISON: 01/03/2018 FINDINGS: Heart: Normal. Mediastinum/Vessels: Normal. Lungs/Pleural space: Normal. Bony thorax: Subacute fractures are noted involving left 5th through 8th ribs.. Life support devices: None. IMPRESSION: Subacute fractures of left 5th through 8th ribs. No acute pulmonary process.. Transcribed By: [facility] [place] Dictated By: VERONA CINTRON Electronically Authenticated By: VERONA CINTRON Signed Date/Time: 01/23/18 6754 EXAM: CT HEAD/BRAIN WO CON HISTORY: fall, generalized weakness TECHNIQUE: Routine axial imaging was obtained of the brain without IV contrast. There are no previous examinations available for comparison. FINDINGS: There is mild generalized volume loss. There is no evidence of acute stroke or hemorrhage. The ventricular system is appropriate in size and is symmetric. There are no extra-axial fluid collections. The visualized sinuses are clear. The mastoid air cells are well pneumatized. The calvarium appears intact. IMPRESSION: Mild generalized volume loss. No acute intracranial process. Transcribed By: RB Dictated By: GUERA CLINE MD Electronically Authenticated By: GUERA CLINE MD Signed Date/Time: 01/24/18 0031 EXAM: CT CHEST W CON HISTORY: fall, left sided rib fractures, trauma TECHNIQUE: Routine axial imaging was obtained of the thorax following the intravenous injection of 100 cc of Omnipaque 300. Sagittal and coronal reconstructions were reviewed. Comparison is made to the study of 01/03/2018. FINDINGS: The lungs reveal generalized emphysematous changes. There is no evidence of pulmonary embolus. Heart size is normal. There are coronary artery calcifications. The abdominal aorta is normal in caliber. There is no evidence of pericardial effusion. The lungs show no evidence of effusion or pneumothorax. In the upper abdomen there are benign cortical cysts in both kidneys the larger on the right side measuring 3 cm in diameter. There is diminished attenuation of the liver. Underlying hepatic steatosis cannot be excluded. There are multiple subacute to chronic healing left-sided rib fractures involving the left 5th through 10th ribs posteriorly. At the thoracic inlet the thyroid gland appears normal. IMPRESSION: Emphysema. No evidence of pneumothorax infiltrates or effusions. Multiple subacute to chronic healing left-sided rib fractures involve the left 5th through 10th ribs posteriorly. Benign cortical cysts in both kidneys. Diminished attenuation liver suggesting hepatic steatosis. Transcribed By: SERA Dictated By: GUERA CLINE MD Electronically Authenticated By: GUERA CLINE MD Signed Date/Time: 01/24/18 0100 - Medical Decision Making Patient presents with some left-sided chest pain, alcohol intoxication, and having some type of a fall where he is having trouble getting up and had to call EMS. He does not appear to have any focal, motor or sensory deficits and his cranial nerves are intact. Heart and lung sounds are normal in auscultation. The patient has some tenderness to palpation to the left lateral posterior rib cage where he has some previous fractures but also has some chest discomfort to the left side of his chest. EKG does not show any signs of ST elevation MT. So far the patient is had negative troponins 2. His blood alcohol level was elevated at 0.29. He was started on a banana bag. No signs of any alcohol withdrawal at this time. CT of the head did not show any bleed, shift, mass or any other acute process. The patient's chest pain may very well be secondary to his rib fractures, but the patient had some type of episode where he had a fall and some generalized weakness and has not had any recent stress test or heart catheterization. This reason my plan is for admission to the hospital for further evaluation and treatment. The patient was accepted for admission by the hospitalist, Dr. Eddy. - Differential Diagnosis MT, costochondritis, rib fractures, dysrhythmia, CVA, TIA Critical Care Time: No Critical care attestation.: If time is entered above; I have spent that time in minutes in the direct care of this critically ill patient, excluding procedure time. ED Disposition Clinical Impression: Generalized weakness, Hypokalemia Chest pain Qualifiers: Chest pain type: unspecified Qualified Code(s): R07.9 - Chest pain, unspecified Multiple rib fractures Qualifiers: Encounter type: subsequent encounter Fracture type: closed Laterality: left Fracture healing: with nonunion Qualified Code(s): S22.42XK - Multiple fractures of ribs, left side, subsequent encounter for fracture with nonunion Alcohol intoxication Qualifiers: Complication of substance-induced condition: uncomplicated Qualified Code(s): F10.920 - Alcohol use, unspecified with intoxication, uncomplicated Disposition: DC-09 OP ADMIT IP TO THIS HOSP Is pt being admited?: Yes Condition: Fair Time of Disposition: 05:53
[2018-01-23 23:37] LABS: Hematocrit 24.8 % (35.5-45.6); Hemoglobin 8.6 gm/dl (11.8-15.2); Mean Corpuscular HGB Conc 35 % (32-34); Mean Corpuscular Hemoglobin 37 pg (28-32); Mean Corpuscular Volume 106 fl (84-94); Platelet Count 297 K/mm3 (140-440); Red Blood Count 2.35 M/mm3 (3.65-5.03)
[2018-01-23 23:47] LABS: Red Cell Distribution Width 24.7 % (13.2-15.2)
--- NOTE | 2018-01-23 23:49 | XRay Report ---
FINAL REPORT PROCEDURE: XR CHEST 1V AP TECHNIQUE: Chest radiograph anteroposterior view. CPT 28764 HISTORY: Chest Pain COMPARISON: 01/03/2018 FINDINGS: Heart: Normal. Mediastinum/Vessels: Normal. Lungs/Pleural space: Normal. Bony thorax: Subacute fractures are noted involving left 5th through 8th ribs.. Life support devices: None. IMPRESSION: Subacute fractures of left 5th through 8th ribs. No acute pulmonary process..
[2018-01-23 23:57] LABS: Alanine Aminotransferase 51 units/L (7-56); Albumin 3.6 g/dL (3.9-5); BUN/Creatinine Ratio 20; Blood Urea Nitrogen 10 mg/dL (9-20); Calcium 7.9 mg/dL (8.4-10.2); Hemolysis Index 4
[2018-01-24] MEDS ORDERED: K-DUR PO ONE ×2 (00:04→11:00)
[2018-01-24] MEDS ORDERED: VITAMIN B-1 100 MG, FOLVITE 1 MG, INFUVITE 10 ML in NACL 0.9% 1000 ML 1,000 ML IV ONE (00:34)
--- NOTE | 2018-01-24 00:37 | Cat Scan Report ---
FINAL REPORT EXAM: CT HEAD/BRAIN WO CON HISTORY: fall, generalized weakness TECHNIQUE: Routine axial imaging was obtained of the brain without IV contrast. There are no previous examinations available for comparison. FINDINGS: There is mild generalized volume loss. There is no evidence of acute stroke or hemorrhage. The ventricular system is appropriate in size and is symmetric. There are no extra-axial fluid collections. The visualized sinuses are clear. The mastoid air cells are well pneumatized. The calvarium appears intact. IMPRESSION: Mild generalized volume loss. No acute intracranial process.
[2018-01-24] MEDS ORDERED: TORADOL IV ONE (00:46)
--- NOTE | 2018-01-24 01:07 | Cat Scan Report ---
FINAL REPORT EXAM: CT CHEST W CON HISTORY: fall, left sided rib fractures, trauma TECHNIQUE: Routine axial imaging was obtained of the thorax following the intravenous injection of 100 cc of Omnipaque 300. Sagittal and coronal reconstructions were reviewed. Comparison is made to the study of 01/03/2018. FINDINGS: The lungs reveal generalized emphysematous changes. There is no evidence of pulmonary embolus. Heart size is normal. There are coronary artery calcifications. The abdominal aorta is normal in caliber. There is no evidence of pericardial effusion. The lungs show no evidence of effusion or pneumothorax. In the upper abdomen there are benign cortical cysts in both kidneys the larger on the right side measuring 3 cm in diameter. There is diminished attenuation of the liver. Underlying hepatic steatosis cannot be excluded. There are multiple subacute to chronic healing left-sided rib fractures involving the left 5th through 10th ribs posteriorly. At the thoracic inlet the thyroid gland appears normal. IMPRESSION: Emphysema. No evidence of pneumothorax infiltrates or effusions. Multiple subacute to chronic healing left-sided rib fractures involve the left 5th through 10th ribs posteriorly. Benign cortical cysts in both kidneys. Diminished attenuation liver suggesting hepatic steatosis.
[2018-01-24 02:19] LABS: Bilirubin,Urine NEG (Negative); Blood,Urine NEG (Negative); Color,Urine Yellow (Yellow); Mucus,Urine 1+ /HPF; Protein,Urine <15 mg/dL mg/dL (Negative); WBC,Urine < 1.0 /HPF (0.0-6.0)
[2018-01-24 02:29] LABS: Amphetamine Screen,Urine PRESUMPTIVE NEGATIVE; Benzodiazepines Screen,Urine PRESUMPTIVE NEGATIVE; Cannabinoid Screen,Urine PRESUMPTIVE NEGATIVE; Cocaine Screen,Urine PRESUMPTIVE NEGATIVE; Methadone Screen,Urine PRESUMPTIVE NEGATIVE; Opiate Screen,Urine PRESUMPTIVE NEGATIVE
[2018-01-24] MEDS ORDERED: ZOFRAN IV PRN (04:48)
[2018-01-24] MEDS ORDERED: SODIUM CHLORIDE FLUSH SYRINGE 10 ML IV PRN (04:48)
[2018-01-24] MEDS ORDERED: TYLENOL PO PRN (04:48)
[2018-01-24] MEDS ORDERED: ATIVAN IV PRN ×2 (04:51)
[2018-01-24 04:52] LABS: Anisocytosis 2+; Band Neutrophils # (Manual) 0.2 K/mm3; Basophils % (Manual) 0 % (0.0-1.8); Platelet Estimate Consistent w Auto; Total Cells Counted 100
--- NOTE | 2018-01-24 04:56 | History and Physical Report ---
History of Present Illness Date of examination: 01/24/18 History of present illness: 57-year-old alcoholic man, hepatitis C, DJD comes who was discharged on 01/04 return to the emergency room because he slipped and fell today He continues to have a pain on the left side, sharp, intensity 8/10, no radiation , hurts to breathe Review of systems Constitutional: no weight loss, chills, fever Ears, eyes, nose, mouth and throat: no nasal congestion, no nasal discharge, no sinus pressure, no vision change, no red eye. Neck: No neck pain or rigidity. Cardiovascular: no chest pain, palpitations Respiratory: no cough, shortness of breath Gastrointestinal: no abdominal pain hematochezia Genitourinary : no frequency , no hematuria Musculoskeletal: no joint swelling or muscle ache Integumentary: no rash, no pruritis Neurological: no parathesias, no numbness, no focal weakness Endocrine: no cold or heat intolerance, no polyuria or polydipsia Hematologic/Lymphatic: no easy bruising, no easy bleeding, no gland swelling Allergic/Immunologic: no urticaria, no angioedema. PAST MEDICAL HISTORY:alcoholism, hepatitis C, DJD PAST SURGICAL HISTORY: Right hand surgery SOCIAL HISTORY: Drinks half gallon in 2 days, no drugs, smoke 1 pack a day FAMILY HISTORY: Hypertension Medications and Allergies Allergies Allergy/AdvReac Type Severity Reaction Status Date / Time No Known Allergies Allergy Unverified 06/13/17 20:44 Home Medications Medication Instructions Recorded Confirmed Last Taken Type Ibuprofen [Ibuprofen Ib] 800 mg PO TID 01/03/18 01/03/18 01/02/18 History oxyCODONE /ACETAMINOPHEN [Percocet 1 tab PO Q6HR PRN #15 tablet 01/04/18 Unknown Rx 5/325] Active Meds: Active Medications Acetaminophen (Tylenol) 650 mg PO Q4H PRN PRN Reason: Pain MILD(1-3)/Fever >100.5/LYON Enoxaparin Sodium (Lovenox) 30 mg SUB-Q QDAY WILLY Folic Acid (Folvite) 1 mg PO QDAY WILLY Lorazepam (Ativan) 2 mg IV Q1HR PRN PRN Reason: CIWA-Ar 8-15 Lorazepam (Ativan) 4 mg IV Q1HR PRN PRN Reason: CIWA-Ar 16-25 Morphine Sulfate (Morphine) 1 mg IV Q4H PRN PRN Reason: Pain, Moderate (4-6) Ondansetron HCl (Zofran) 4 mg IV Q8H PRN PRN Reason: Nausea And Vomiting Sodium Chloride (Sodium Chloride Flush Syringe 10 Ml) 10 ml IV BID [facility] Sodium Chloride (Sodium Chloride Flush Syringe 10 Ml) 10 ml IV PRN PRN PRN Reason: LINE FLUSH Thiamine HCl (Vitamin B-1) 100 mg PO DAILY [facility] Exam - Physical Exam Narrative exam: Gen. appearance: Patient lying in bed, no apparent distress HEENT: Normocephalic, atraumatic, pupils equally round and reactive to light, extraocular movement intact, and no sclericterus,. No JVD or thyromegaly or nodule,neck supple, no carotid bruit ,mucous membranes moist, no exudate or erythema Heart: S1, S2, regular rate and rhythm Lungs: Clear bilaterally, breathing comfortable Abdomen: Positive bowel sounds, non-tender, nondistended, no organomegaly Extremity:no edema cyanosis, clubbing Skin: no rash, dry, warm Neuro: Oriented 3, cranial nerves II-12 intact, speech is fluent, motor and sensory intact - Constitutional Vitals: Temp Pulse Resp BP Pulse Ox 98 F 66 16 101/52 95 01/23/18 23:10 01/23/18 23:45 01/24/18 01:52 01/24/18 04:00 01/24/18 04:00 Results - Labs CBC & Chem 7: 01/23/18 23:26 01/23/18 23:26 Labs: Abnormal lab results 01/23/18 01/23/18 01/23/18 Range/Units 23:26 23:26 23:26 WBC 3.4 L (4.5-11.0) K/mm3 RBC 2.35 L (3.65-5.03) M/mm3 Hgb 8.6 L (11.8-15.2) gm/dl Hct 24.8 L (35.5-45.6) % MCV 106 H (84-94) fl MCH 37 H (28-32) pg MCHC 35 H (32-34) % RDW 24.7 H (13.2-15.2) % Lymphocytes # (Manual) 1.1 L (1.2-5.4) K/mm3 Sodium 148 H (137-145) mmol/L Potassium 3.1 L (3.6-5.0) mmol/L Chloride 108.4 H (98-107) mmol/L Creatinine 0.5 L (0.8-1.5) mg/dL Calcium 7.9 L (8.4-10.2) mg/dL AST 72 H (5-40) units/L Total Protein 6.0 L (6.3-8.2) g/dL Albumin 3.6 L (3.9-5) g/dL Ur Specific [place] (1.003-1.030) Plasma/Serum Alcohol 0.29 H (0-0.07) % 01/24/18 Range/Units 01:45 WBC (4.5-11.0) K/mm3 RBC (3.65-5.03) M/mm3 Hgb (11.8-15.2) gm/dl Hct (35.5-45.6) % MCV (84-94) fl MCH (28-32) pg MCHC (32-34) % RDW (13.2-15.2) % Lymphocytes # (Manual) (1.2-5.4) K/mm3 Sodium (137-145) mmol/L Potassium (3.6-5.0) mmol/L Chloride (98-107) mmol/L Creatinine (0.8-1.5) mg/dL Calcium (8.4-10.2) mg/dL AST (5-40) units/L Total Protein (6.3-8.2) g/dL Albumin (3.9-5) g/dL Ur Specific [place] 1.057 H (1.003-1.030) Plasma/Serum Alcohol (0-0.07) % - Imaging and Cardiology CT scan - chest: report reviewed CT Scan - head: report reviewed Assessment and Plan Assessment Hypernatremia Intractable pain due to rib fracture Multiple rib fractures Substancel abuse Plan Admit to medicine Start IV fluid,monitor sodium levels Starrt IV morphine, CIWA protocol with IV ativan, thiamine, folate DVT prophylaxis, check cardiac enzymes
[2018-01-24] MEDS ORDERED: D5/0.45NS 1,000 ML IV SCH (06:00)
[2018-01-24] MEDS: MORPHINE IV PRN ×3 (06:50→14:32)
[2018-01-24 07:24] VITALS: BP 128/73
[2018-01-24 07:34] LABS: Creatine Kinase MB 4.5 ng/mL (0.0-4.0)
[2018-01-24] MEDS ORDERED: FOLVITE PO SCH (10:00)
[2018-01-24] MEDS ORDERED: LOVENOX SUB-Q SCH (10:00)
[2018-01-24] MEDS ORDERED: SODIUM CHLORIDE FLUSH SYRINGE 10 ML IV SCH (10:00)
[2018-01-24] MEDS ORDERED: VITAMIN B-1 PO SCH (10:00)
[2018-01-24 10:33] LABS: Hematocrit 25.2 % (35.5-45.6); Hemoglobin 8.9 gm/dl (11.8-15.2)
--- NOTE | 2018-01-24 10:40 | Discharge Summary ---
Providers - Providers Date of Admission: 01/24/18 04:49 Attending physician: VIKY VARGAS MD Primary care physician: TINTER PHOTOGRAPH Hospitalization Condition: Stable Disposition: DC-01 TO HOME OR SELFCARE Time spent for discharge: 35 mins Exam - Constitutional Vitals: Temp Pulse Resp BP Pulse Ox 98 F 67 16 128/73 96 01/23/18 23:10 01/24/18 07:00 01/24/18 07:20 01/24/18 07:00 01/24/18 07:00 Plan Activity: advance as tolerated, fall precautions Diet: low salt Special Instructions: record daily BP diary Additional Instructions: must enroll in a detox program Follow up with: PRIMARY CARE, [Primary Care Provider] - 7 Days Prescriptions: Folic Acid [Folvite] 1 mg PO QDAY #30 tablet Thiamine [Vitamin B-1] 100 mg PO DAILY #30 tablet traMADol [Ultram] 50 mg PO Q6HR PRN #14 tablet PRN Reason: Pain
[2018-01-24 10:48] LABS: Creatine Kinase MB 4.7 ng/mL (0.0-4.0)
[2018-01-24] MEDS ORDERED: MAG-OX PO SCH (11:00)
== END 2018-01-24 15:19 | disposition home or self-care (01) | DRG 184 ==
LOC: ED 22:51 → 4A 01-24 04:49 → UNDODISIN 01-24 15:19
PROVIDERS: ADMIT Internal Medicine; ATTEND Internal Medicine
DX: S22.42XA Multiple fractures of ribs, left side, initial encounter for closed fracture (principal); E87.1 Hypo-osmolality and hyponatremia; W01.0XXA Fall on same level from slipping, tripping and stumbling without subsequent striking against object, initial encounter; F17.210 Nicotine dependence, cigarettes, uncomplicated; F15.10 Other stimulant abuse, uncomplicated; G89.29 Other chronic pain; M54.9 Dorsalgia, unspecified; E87.6 Hypokalemia; F10.129 Alcohol abuse with intoxication, unspecified; Y90.0 Blood alcohol level of less than 20 mg/100 ml; Y93.89 Activity, other specified; Y92.098 Other place in other non-institutional residence as the place of occurrence of the external cause; Y99.8 Other external cause status; Z82.49 Family history of ischemic heart disease and other diseases of the circulatory system
CPT/HCPCS: 36415; 70450; 71045; 71260; 80053; 80307; 80320; 81001; 82550; 82553; 84484; 85007; 85014; 85018; 85025; 93005; 93010; G0480; J1650; J1885; J2270; J3411; J7030; Q9967